=== PATIENT | male | born 1960 | race Caucasian/White ===

== ENCOUNTER 2018-08-23 17:13 | Emergency (ER) | payer BC ==
[~2018-08-23] VITALS: Ht 177.8 cm; Wt 102.9 kg
[2018-08-23] MEDS ORDERED: ASPIRIN 81 MG TABLET CHEW PO ONE (17:30)
--- NOTE | 2018-08-23 17:31 | NUR ---
TO ROOM FROM LOBBY. NAD.
--- NOTE | 2018-08-23 17:43 | NUR ---
PT REPORTS LEFT SIDED, NON RADIATING CHEST PAIN X 2 DAYS. DENIES ANY OTHER SYMPTOMS. DENIES SIGNIFICANT PAST MEDICAL HISTORY. NO HOME MEDS.
[2018-08-23 17:47] LABS: ALBUMIN 4.2 g/dL (3.4-5.0); ANION GAP 7 mmol/L (5-15); CHLORIDE 106 mmol/L (98-107); CREATININE 1.25 mg/dL (0.7-1.3)
[2018-08-23 17:51] LABS: TROPONIN I < 0.015 ng/mL (0.000-0.045)
[2018-08-23] MEDS ORDERED: ASPIRIN 81 MG TABLET CHEW ONE (18:01)
--- NOTE | 2018-08-23 18:04 | NUR ---
PT MEDICATED PER MAY. MD TO BEDSIDE TO ASSESS PT. CALL LIGHT WITHIN REACH. AWAITING TEST RESULTS AT THIS TIME
[2018-08-23 18:15] LABS: MEAN CORPUSCULAR HGB CONC 32.2 g/dL (33.2-36.2); MEAN CORPUSCULAR VOLUME 87.2 fL (81-97); MEAN PLATELET VOLUME 7.9 fL (7.4-10.4); PLATELET COUNT 224 x10^3/uL (130-400); RED BLOOD COUNT 5.47 x10^6/uL (4.38-5.82); RED CELL DISTRIBUTION WIDTH 13.4 % (9.4-14.8)
[2018-08-23 18:16] LABS: MD YES
[2018-08-23 18:18] LABS: EOS#(MANUAL) 0.23 x10^3/uL (0.0-0.4); EOS% (MANUAL) 3 % (1-7); LYMPHS% (MANUAL) 26 % (22-44); MONOS#(MANUAL) 0.39 x10^3/uL (0.3-2.7); MONOS% (MANUAL) 5 % (2-9); SEG#(MANUAL) 5.08 x10^3/uL (1.8-6.8); SEGS% (MANUAL) 66 % (42-75)
[2018-08-23 18:19] LABS: <PLATELET ESTIMATE> ADEQUATE; <PLT MORPHOLOGY> NORMAL PLT MORPH; <RBC MORPHOLOGY> NORMAL
[2018-08-23] MEDS ORDERED: LISINOPRIL 10 MG TABLET PO ONE (18:30)
[2018-08-23] MEDS ORDERED: LISINOPRIL 10 MG TABLET ONE (18:34)
[2018-08-23 18:52] LABS: TROPONIN I < 0.015 ng/mL (0.000-0.045)
--- NOTE | 2018-08-23 19:05 | NUR ---
ALL RESULTS BACK AT THIS TIME, CHART UP FOR RECHECK
[2018-08-23 19:08] VITALS: BP 148/106
--- NOTE | 2018-08-23 19:09 | NUR ---
BP DECREASING AFTER BP MEDS GIVEN, DBP STILL ELEVATED, MD TO BE UPDATED. PT REPORTING NO PAIN. PA TO BEDSIDE TO UPDATE PT ON POC AND DC HOME WITH FRIEND.
== END 2018-08-23 19:34 | disposition home or self-care (01) ==
LOC: ED 19:15
DX: R07.89 Other chest pain (principal); I10 Essential (primary) hypertension
CPT/HCPCS: 36415; 71046; 80048; 82040; 84484; 85025; 85379; 93005; 99284